=== PATIENT | female | born 1995 | race African-American/Black ===

== ENCOUNTER 2017-09-08 20:40 | Emergency (ER) | payer OTHER ==
[2017-09-08 20:47] VITALS: BP 112/74; BMI 21.6
--- NOTE | 2017-09-08 21:10 | DR.GENAD ---
HPI - PCP Primary Care Physician: NFD - HPI Comment HPI Comment: PATIENT HAVE SLIGHT HEADACHE BUT DENIES DIZZINESS. NO FEVER. CURRENTLY MENSTRUATING. NO N/V/D. - Complaint/Symptoms Chief Complaint Doctors Comments: PATIENT HAD SYNCOPAL EPISODE AT WORK TONIGHT AND FELL, HITTING HER HEAD. Chief Complaint:: PATIENT WAS AT WORK AND OTHER EMPLOYEES REPORT PATIENT FELL, HIT FOREHEAD AND WAS UNRESPONSIVE. REPORTS A SYNCOPAL EPISODE. EMS ARRIVED PATIENT ALERT AND ORIENTED. - Nurses notes reviewed Nurses Notes Review: Yes - Source History Provided: Patient - Mode of Arrival Mode of Arrival: EMS - Timing Onset of Chief Complaint: 09/08/17 Came on: Suddenly - Duration Duration: Constant Duration: Days - Severity Severity: Moderate PMH - PMH Past Medical History: Yes Past Medical History Comment: MITRAL VALVE PROLAPSE Past Surgical History: Yes Past Surgical History Comment: OPEN HEART ABOUT 12 YEARS AGO - Family History History of Family Medical Conditions: No - Social History Does patient currently use any type of tobacco product: No Have you used tobacco products in the last 12 months: No Type of Tobacco Use: None Does any household member use tobacco: No Alcohol Use: None Do you use any recreational Drugs:: No Lives With: Family Lives Where: Home - infectious screening In the last 2 months have you had wt loss of >10#?: NO Have you had fever, night sweats or hemotysis?: No Have you traveled outside the country in the last 6 months?: No Isolation: Standard ROS - Review of Systems Constitutional: Weakness, Fatigue. negative: Chills, Fever Eyes: No Symptoms Reported. negative: Eye Pain, Blurred Vision, Discharge, Photophobia, Diplopia ENTM: No Symptoms Reported. negative: Ear Pain, Nose Discharge, Nose Congestion , Throat Pain Respiratoy: No Symptoms Reported. negative: Productive Cough, Non-Productive Cough, Short of Breath, Wheezing Cardiovascular: Syncope. negative: Chest Pain Gastrointestinal/Abdominal: No Symptoms Reported. negative: Abdominal Pain, Diarrhea, Nausea, Vomiting Genitourinary: Bleeding (MENSTRUATING.). negative: Dysuria, Frequency, Hematuria Neurological: Headache, Weakness, Dizziness, Other (SYNCOPAL EPISODE.) Musculoskeletal: No Symptoms Reported Integumentary: No Symptoms Reported Hematologic/Lymphatic: No Symptoms Reported Endocrine: No Symptoms Reported All Other Systems: Reviewed and Negative PE - Vital Signs Vitals: Temperature 97.6 F Pulse Rate [Left] 72 Pulse Rate 67 Respiratory Rate 20 Blood Pressure [Left Arm] 112/74 Blood Pressure 112/74 O2 Sat by Pulse Oximetry 100 - General Limitations: No Limitations General Appearance: Alert - Head Head Exam: Normal Inspection - Eyes Eye exam: Normal Appearance - ENT ENT Exam: Normal External Ear Exam External Ear Exam: Normal External Inspection TM/Canal Exam: Bilateral Normal Nose Exam: Normal Nose Exam Mouth Exam: Normal Inspection Throat Exam: Normal Inspection - Neck Neck Exam: Normal Inspection - Chest Chest Inspection: Symmetric Chest Wall Rise - Respiratory Respiratory Exam: Normal Lung Sounds Bilat Respiratory Exam: Bilateral Clear to Auscultation - Cardiovascular Cardiovascular Exam: Regular Rate, Normal Rhythm, Normal Heart Sounds - Abdominal Exam Abdominal Exam: Normal Bowel Sounds, Soft. negative: Tenderness - Extremities Extremities Exam: Normal Inspection - Back Back Exam: Normal Inspection - Neurologic Neurological Exam: Alert, Oriented X3, CN II-XII Intact, Reflexes Normal. negative: Motor Sensory Deficit - Psychiatric Psychiatric Exam: Normal Affect, Normal Mood - Skin Skin Exam: Normal Color MDM - Differential Diagnosis Differential Diagnosis: SYNCOPAL EPISODE, HEAD TRAUMA, AMS Course - Treatment Treatment: SEE ORDERS. PATIENT REMAIN FULLY ALERT AND LUCID IN ED. - Reevaluation 1st: Improved - Education/Counseling Education/Counseling: Patient, Education Educated On: Diagnosis ROR - Labs Reviewed Laboratory Results Reviewed?: Yes Result Diagrams: 09/08/17 21:25 09/08/17 21:25 Laboratory: WBC 7.1 X10^3/uL (3.6-10.0) 09/08/17 21:25 RBC 4.06 X10^6/uL (3.5-5.4) 09/08/17 21:25 Hgb 10.1 g/dL (12.0-16.0) L 09/08/17 21:25 Hct 31.0 % (36.0-47.0) L 09/08/17 21:25 MCV 76.4 fL (80.0-100.0) L 09/08/17 21:25 MCH 25.0 pg (27.0-34.0) L 09/08/17 21:25 MCHC 32.7 g/dL (33.0-35.0) L 09/08/17 21:25 RDW 16.7 % (11.6-16.5) H 09/08/17 21:25 Plt Count 309 X10^3/uL (150.0-450.0) 09/08/17 21:25 Plt Count Comment Adequate (ADEQUATE) 09/08/17 21: MPV 7.9 fL (7.4-11.0) 09/08/17 21:25 Neut % (Auto) 55.0 % (42.0-75.0) 09/08/17 21: Lymph % (Auto) 34.8 % (21.0-51.0) 09/08/17 21:25 [place] % (Auto) 7.8 % (0.0-13.0) 09/08/17 21: Eos % (Auto) 1.3 % (0.9-2.9) 09/08/17 21: Baso % (Auto) 1.1 % (0.2-1.0) H 09/08/17 21:25 Neut # (Auto) 3.9 x10^3/uL (2.2-4.8) 09/08/17 21:25 Lymph # (Auto) 2.5 X10^3/uL (1.3-2.9) 09/08/17 21:25 [place] # (Auto) 0.6 x10^3/uL (0.3-0.8) 09/08/17 21:25 Eos # (Auto) 0.1 x10^3/uL (0.0-0.2) 09/08/17 21:25 Baso # (Auto) 0.1 X10^3/uL (0.0-0.1) 09/08/17 21:25 Absolute Nucleated RBC 0.1 /100WBC 09/08/17 21:25 Plt Morphology Comment Normal (NORMAL) 09/08/17 21:25 RBC Morphology Abnormal (NORMAL) A 09/08/17 21:25 Anisocytosis Slight A 09/08/17 21:25 Sodium 140 mmol/L (136-145) 09/08/17 21:25 Corrected Sodium TNP 09/08/17 21:25 Potassium 3.2 mmol/L (3.5-5.1) L 09/08/17 21:25 Chloride 104 mmol/L (98-107) 09/08/17 21:25 Carbon Dioxide 26.6 mmol/L (21-32) 09/08/17 21:25 BUN 9 mg/dL (7-18) 09/08/17 21:25 Creatinine 1.07 mg/dL (0.55-1.02) H 09/08/17 21:25 Est GFR (MDRD) Af Amer > 60 (>60) 09/08/17 21:25 Est GFR (MDRD) Non-Af > 60 (>60) 09/08/17 21:25 Glucose 100 mg/dL (65-99) H 09/08/17 21:25 Calcium 8.7 mg/dL (8.5-10.1) 09/08/17 21:25 Corrected Calcium TNP 09/08/17 21:25 Total Bilirubin 0.20 mg/dL (0.2-1.0) 09/08/17 21:25 AST 14 Units/L (15-37) L 09/08/17 21:25 ALT 14 Units/L (12-78) 09/08/17 21:25 Alkaline Phosphatase 18 Units/L (46-116) L 09/08/17 21:25 Total Protein 8.0 g/dL (6.4-8.2) 09/08/17 21:25 Albumin 4.3 g/dL (3.4-5.0) 09/08/17 21:25 Globulin 3.7 g/dL (2.5-4.5) 09/08/17 21:25 Albumin/Globulin Ratio 1.2 Ratio (1.1-2.1) 09/08/17 21:25 HCG, Qual Negative <10 mIU/mL 09/08/17 21:25 Specimen Type Clean catch urine 09/08/17 21:21 Urine Color Yellow (YELLOW) 09/08/17 21: Urine Appearance Hazy (CLEAR) 09/08/17 21:21 Urine pH 6.0 (5.0 - 8.0) 09/08/17 21: Ur Specific [place] 1.010 (1.000-1.030) 09/08/17 21: Urine Protein 1+ (NEGATIVE) 09/08/17: Urine Glucose (UA) Negative (NEGATIVE) 09/08/17: Urine Ketones Negative (NEGATIVE) 09/08/17: Urine Occult Blood 4+ (NEGATIVE) 04/30/18 21:21 Urine Nitrite Negative (NEGATIVE) 09/08/17 21:21 Urine Bilirubin Negative (NEGATIVE) 09/08/17 21:21 Urine Urobilinogen Normal (NORMAL) 09/08/17 21:21 Ur Leukocyte Esterase 1+ (NEGATIVE) 09/08/17 21:21 Urine RBC 10-20 /HPF (NONE SEEN) 09/08/17 21:21 Urine WBC 3-5 /HPF (NONE SEEN) 09/08/17 21:21 Ur Squamous Epith Cells Rare /HPF (NEGATIVE) 09/08/17 21:21 Urine Bacteria Negative /HPF (NEGATIVE) 09/08/17 21:21 Urine Mucus Rare /HPF (NEGATIVE) 09/08/17 21:21 Ur Culture Indicated? No/not indicated 09/08/17 21:21 Non-DOT Drug Screen Collected 09/08/17 23:41 - XRAY XRAY Interpreted by: Radiologist XRAY Findings: REPORT DISCUSS WITH PATIENT. - EKG Rhythm: NSR (EKG NOTED) - Diagnosis Discharge Problem: Hypokalemia Syncope Qualifiers: Syncope type: unspecified Qualified Code(s): R55 - Syncope and collapse - Discharge Plan Disposition: 01 HOME, SELF-CARE Condition: Stable - Follow ups/Referrals Follow ups/Referrals: NFD,None [Primary Care Provider] - 1 day LALO DELGADILLO [STAFF PHYSICIAN] - 1 day - Instructions Instructions: Hypokalemia, Syncope, [id number] Additional Instructions: RETURN TO ED IF WORSE.
[2017-09-08 21:36] LABS: BASOPHILS # (AUTO) 0.1 X10^3/uL (0.0-0.1); BASOPHILS % (AUTO) 1.1 % (0.2-1.0); EOSINOPHILS # (AUTO) 0.1 x10^3/uL (0.0-0.2); EOSINOPHILS % (AUTO) 1.3 % (0.9-2.9); HEMOGLOBIN 10.1 g/dL (12.0-16.0); LYMPHOCYTES # (AUTO) 2.5 X10^3/uL (1.3-2.9); LYMPHOCYTES % (AUTO) 34.8 % (21.0-51.0); MEAN CORPUSCULAR HGB CONC 32.7 g/dL (33.0-35.0); MEAN CORPUSCULAR VOLUME 76.4 fL (80.0-100.0); MEAN PLATELET VOLUME 7.9 fL (7.4-11.0); MONOCYTES # (AUTO) 0.6 x10^3/uL (0.3-0.8); MONOCYTES % (AUTO) 7.8 % (0.0-13.0); NEUTROPHILS # (AUTO) 3.9 x10^3/uL (2.2-4.8); PLATELET COUNT 309 X10^3/uL (150.0-450.0); RED BLOOD COUNT 4.06 X10^6/uL (3.5-5.4); RED CELL DISTRIBUTION WIDTH 16.7 % (11.6-16.5); WHITE BLOOD COUNT 7.1 X10^3/uL (3.6-10.0)
[2017-09-08 21:39] LABS: BILIRUBIN,URINE NEGATIVE (NEGATIVE); BLOOD/HEMOGLOBIN,URINE 4+ (NEGATIVE); GLUCOSE, URINE NEGATIVE (NEGATIVE); KETONES,URINE NEGATIVE (NEGATIVE); LEUKOCYTE ESTERASE ,URINE 1+ (NEGATIVE); NITRITES,URINE NEGATIVE (NEGATIVE); PROTEIN,URINE 1+ (NEGATIVE); UROBILINOGEN,URINE NORMAL (NORMAL)
[2017-09-08 21:45] LABS: APPEARANCE,URINE HAZY (CLEAR); COLOR,URINE YELLOW (YELLOW)
--- NOTE | 2017-09-08 21:45 | CT ---
History: Syncopal episode with fall and unresponsive Study: CT head without contrast. Sagittal and coronal reformations were provided. Comparison: None Findings: The ventricles and sulci are normal in size and configuration. There is no intracranial hem orrhage or mass or edema or subdural collection of fluid. The partially visualized paranasal sinuses are clear. The calvarium is intact. Impression: Negative, no acute intracranial disease demonstrated Reported By:
[2017-09-08 21:46] LABS: BACTERIA,URINE NEGATIVE /HPF (NEGATIVE); MUCUS,URINE RARE /HPF (NEGATIVE); SQUAMOUS EPITHELIAL CELL,UR RARE /HPF (NEGATIVE)
[2017-09-08 21:47] LABS: SERUM PREGNANCY TEST, QUAL NEGATIVE <10 mIU/mL
[2017-09-08 21:48] LABS: PLATELET MORPHOLOGY COMMENT NORMAL (NORMAL)
[2017-09-08 21:49] LABS: ANISOCYTOSIS SLIGHT
[2017-09-08 21:52] LABS: ALANINE AMINOTRANSFERASE 14 Units/L (12-78); ALBUMIN 4.3 g/dL (3.4-5.0); ALKALINE PHOSPHATASE 18 Units/L (46-116); ASPARTATE AMINO TRANSFERASE 14 Units/L (15-37); BLOOD UREA NITROGEN 9 mg/dL (7-18); CALCIUM 8.7 mg/dL (8.5-10.1); CARBON DIOXIDE 26.6 mmol/L (21-32); CHLORIDE 104 mmol/L (98-107); CREATININE 1.07 mg/dL (0.55-1.02); SODIUM 140 mmol/L (136-145); eGFR BLACK RACES > 60 (>60); eGFR NON BLACK RACES > 60 (>60)
[2017-09-08] MEDS ORDERED: K-LYTE EFFERVESCENT PO ONE (22:25)
[2017-09-08] MEDS ORDERED: K-LYTE EFFERVESCENT ONE (22:35)
== END 2017-09-08 23:25 | disposition home or self-care (01) ==
LOC: ER 20:59
DX: R55 Syncope and collapse (principal); E87.6 Hypokalemia
CPT/HCPCS: 36415; 70450; 80053; 81001; 84703; 85025; 93005; 93010; 99000; 99283; 99285